=== PATIENT | male | born 1990 | race Two or more races ===

== ENCOUNTER 2024-12-29 11:15 | Day surgery (SDC) | payer OTHER ==
[~2024-12-29 11:15] MED LIST: Albuterol 0.083% 2.5 MG/3 ML Neb Soln NEB PRN; Bupivacaine 0.5% 30 ML SDV ONE; HYDROmorphone 1 MG/ML Syringe IVPUSH PRN; Lactated Ringers 1,000 ML IV SCH; Metoclopramide 10 MG/2 ML SDV IVPUSH PRN; Morphine 2 MG/ML SYRINGE IVPUSH PRN; Naloxone 0.4 MG/ML SDV IVPUSH PRN; Ondansetron 4 MG/2 ML SDV IVPUSH PRN; Phenylephrine HCl In 0.9% NaCl 1 MG/10 ML Syringe IVPUSH PRN; ceFAZolin 1 GM Vial ONE; ceFAZolin 2 GM in Water For Injection, Sterile 20 ML IVPUSH ONE; fentaNYL 50 MCG/ML SDV IVPUSH PRN
[2024-12-29] MEDS ORDERED: fentaNYL 100 MCG/2 ML SDV ONE (11:57)
[2024-12-29] MEDS ORDERED: Propofol 200 MG/20 ML SDV ONE (11:57)
[2024-12-29] MEDS ORDERED: Rocuronium Bromide 50 MG/5 ML Syringe ONE (11:58)
[2024-12-29] MEDS ORDERED: propofoL 500 MG/50 ML 50 ML ONE ×2 (11:59→13:37)
[2024-12-29] MEDS: Lactated Ringers 1,000 ML IV SCH (12:22)
[2024-12-29] MEDS ORDERED: ceFAZolin 2 GM Vial ONE (13:34)
[2024-12-29] MEDS ORDERED: Lidocaine 1% with EPINEPHrine 1:100,000 10 ML MDV ONE (13:35)
[2024-12-29] MEDS ORDERED: Sugammadex Sodium 200 MG/2 ML VIAL IV ONE (13:52)
[2024-12-29] MEDS ORDERED: Dexamethasone 4 MG/ML 5 ML MDV ONE (13:52)
[2024-12-29] MEDS ORDERED: Ondansetron 4 MG/2 ML SDV ONE (13:52)
== END 2024-12-29 15:09 | disposition home or self-care (01) ==
LOC: MW.SDS 11:15
PROVIDERS: ATTEND Surgery
DX: L90.5 Scar conditions and fibrosis of skin (principal); K61.0 Anal abscess; F17.210 Nicotine dependence, cigarettes, uncomplicated; Z79.899 Other long term (current) drug therapy
CPT/HCPCS: 00400; J0665; J0690; J1100; J2405; J2704; J3010; J3490; J7120

== ENCOUNTER 2025-01-02 12:42 | Emergency (ER) | payer OTHER | END 2025-01-02 13:49 | disposition home or self-care (01) | LOC: MW.ED 12:42 | DX: L76.22 Postprocedural hemorrhage of skin and subcutaneous tissue following other procedure (principal); Z75.3 Unavailability and inaccessibility of health-care facilities; Z79.899 Other long term (current) drug therapy | CPT/HCPCS: 99282; 99283 ==